=== PATIENT | female | born 1995 | race Caucasian/White ===

== ENCOUNTER 2017-10-14 18:14 | Emergency (ER) | payer OTHER ==
[2017-10-14 18:25] VITALS: BP 136/65
--- NOTE | 2017-10-14 18:44 | UC ---
Ear Complaint HPI - HPI Summary HPI Summary: Pt presents with right ear pain for 1 week. She tells me that her pain began in her right ear 1 week ago and feels like a dull throbbing. She does have a history of cerumen impaction, especially in the right ear. She has been using her cerumen-softening ear drops with no relief. Denies fever, chills, cough, SOB , chest pain, abdominal pain, n/v/d/c, headache, or dizziness. - History of Current Complaint Chief Complaint: UCEar Stated Complaint: EAR PAIN Time Seen by Provider: 10/14/17 18:43 Hx Obtained From: Patient Hx Last Menstrual Period: NOW Severity Initially: Mild Severity Currently: Mild Pain Intensity: 3 Pain Scale Used: 0-10 Numeric - Allergies/Home Medications Allergies/Adverse Reactions: Allergies Allergy/AdvReac Type Severity Reaction Status Date / Time Amoxicillin Allergy Rash Verified 10/14/17 18:25 Home Medications: Home Medications Acetaminophen [Mapap] 1,000 mg PO ONCE PRN 10/14/17 [History Confirmed 10/14/17] Lisinopril TAB* [Prinivil TAB*] 20 mg PO DAILY 10/14/17 [History Confirmed 10/14] Omeprazole CAP* [Prilosec CAP* 20 MG] 40 mg PO DAILY 10/14/17 [History Confirmed 10/14/17] PMH/Surg Hx/FS Hx/Imm Hx Previously Healthy: Yes GI/ History: Gastroesophageal Reflux - Surgical History Surgical History: Yes Surgery Procedure, Year, and Place: Appendectomy 2014, TONSILLECTOMY - Family History Known Family History: Positive: Cardiac Disease - Social History Occupation: Employed Full-time Lives: With Family Alcohol Use: Occasionally Substance Use Type: None Smoking Status (MU): Never Smoked Tobacco Review of Systems Constitutional: Negative Skin: Negative Eyes: Negative ENT: Ear Ache Respiratory: Negative Cardiovascular: Negative Gastrointestinal: Negative All Other Systems Reviewed And Are Negative: Yes Physical Exam Triage Information Reviewed: Yes Appearance: Well-Appearing, No Pain Distress, Well-Nourished Vital Signs: Initial Vital Signs Temp 97.7 F 10/14/17 18:23 Pulse 73 10/14/17 18:23 Resp 16 10/14/17 18:23 BP 136/65 10/14/17 18:23 Pulse Ox 100 10/14/17 18:23 Vital Signs Reviewed: Yes Eyes: Positive: Conjunctiva Clear. Negative: Conjunctiva Inflamed, Discharge ENT: Positive: Hearing grossly normal, Pharynx normal, Pharyngeal erythema, TMs normal, Uvula midline, Other - Right TM occluded by cerumen, but canal is with mild edema and thin clear/yellow discharge. After ear irrigation: TM is not bulging, dull, or red.. Negative: Nasal congestion, Nasal drainage, TM bulging , TM dull, TM red, Tonsillar swelling, Tonsillar exudate, Hoarse voice, Sinus tenderness Neck: Positive: Supple, Nontender, No Lymphadenopathy Respiratory: Positive: Chest non-tender, Lungs clear, Normal breath sounds, No respiratory distress, No accessory muscle use Cardiovascular: Positive: RRR, No Murmur, Pulses Normal Neurological: Positive: Alert Psychological: Positive: Age Appropriate Behavior Skin: Negative: rashes Ear Complaint Course/Dx - Course Course Of Treatment: Right ear irrigation - pt tolerated well and cerumen was successfully removed. She still had some mild pain, but felt improved. Rx for ofloxacin ear drops for otitis externa - Differential Dx/Diagnosis Differential Diagnosis/HQI/PQRI: Cerumen Impaction, Otitis Externa, Otitis Media , Perforated TM Provider Diagnoses: Otitis externa right ear. Cerumen impaction right ear Discharge - Discharge Plan Condition: Stable Disposition: HOME Prescriptions: Ofloxacin 0.3% OTIC.ISMAEL* [Floxin 0.3% OTIC.ISMAEL*] 10 drop RIGHT EAR DAILY #1 btl Patient Education Materials: Otitis Externa (ED) Referrals: Shelia Villanueva NP [Primary Care Provider] - Additional Instructions: If you develop a fever, shortness of breath, chest pain, new or worsening symptoms - please call your PCP or go to the ED. Your blood pressure was mildly elevated at todays visit. Please see your primary provider within 4 weeks for recheck and re-evaluation.
== END 2017-10-14 19:30 | disposition home or self-care (01) ==
LOC: UCEAST 18:14
DX: H60.91 Unspecified otitis externa, right ear (principal); H61.21 Impacted cerumen, right ear; K21.9 Gastro-esophageal reflux disease without esophagitis; Z90.89 Acquired absence of other organs; Z88.1 Allergy status to other antibiotic agents
CPT/HCPCS: 99213; G0463

== ENCOUNTER 2018-09-06 07:18 | Observation (INO) | payer BC ==
[~2018-09-06 07:18] MED LIST: Buffered Lidocaine 0.9% SYRIN* 5 ML/SYR SYRINGE INTRADERM ONE; Dexamethasone IV* 4 MG/ML 1 ML (4 MG) IV SLOW PU ONE; Famotidine IV* 10 MG/ML 2 ML (20 mg) IV ONE
[2018-09-06] MEDS ORDERED: fentaNYL* 50 MCG/ML 5 ML VIAL (250 MCG VIAL) ONE (08:52)
[2018-09-06] MEDS ORDERED: Midazolam* 1 MG/ML 5 ML VIAL (5 MG) ONE (08:52)
[2018-09-06] MEDS ORDERED: Dexamethasone IV* 4 MG/ML 1 ML (4 MG) ONE (08:55)
[2018-09-06] MEDS ORDERED: Famotidine IV* 10 MG/ML 2 ML (20 mg) ONE (08:55)
[2018-09-06] MEDS ORDERED: Buffered Lidocaine 0.9% SYRIN* 5 ML/SYR SYRINGE ONE (08:55)
[2018-09-06] MEDS ORDERED: Lidocaine 2% PF * 5 ML VIAL ONE ×2 (08:56→12:30)
[2018-09-06] MEDS ORDERED: Propofol* 10 MG/ML 20 ML BTL ONE ×2 (08:57→09:51)
[2018-09-06] MEDS ORDERED: Rocuronium* 10 MG/ML VIAL ONE (09:50)
[2018-09-06] MEDS ORDERED: Succinylcholine* 20 MG/ML 10 ML VIAL ONE ×2 (09:51→11:09)
[2018-09-06] MEDS ORDERED: DiMENhydriNATE IV* 50 MG/ML VIAL IV PUSH PRN (10:13)
[2018-09-06] MEDS ORDERED: Naloxone* 0.4 MG/ML 1 ML VIAL IV PRN (10:13)
[2018-09-06] MEDS ORDERED: fentaNYL* 50 MCG/ML 2 ML VIAL (100 MCG VIAL) IV PRN (10:13)
[2018-09-06] MEDS ORDERED: Lidocain 1% EPI 1:100,000 * 30 ML MDV ONE (10:28)
[2018-09-06] MEDS ORDERED: Ondansetron INJ* 2 MG/ML VIAL ONE (13:34)
[2018-09-06] MEDS ORDERED: fentaNYL* 50 MCG/ML 2 ML VIAL (100 MCG VIAL) ONE (13:44)
[2018-09-06] MEDS ORDERED: Ibuprofen PED LIQ 100 MG/5 ML UDC ONE ×2 (15:48→15:49)
[2018-09-06] MEDS ORDERED: Ondansetron TAB* 4 MG PO PRN (16:48)
[2018-09-06] MEDS ORDERED: Ondansetron INJ* 2 MG/ML VIAL IV PRN (16:49)
[2018-09-06] MEDS ORDERED: Enoxaparin(*) 40 MG/0.4 ML SYR SUBCUT SCH (17:00)
[2018-09-06] MEDS ORDERED: Ibuprofen TAB* 800 MG PO PRN (20:39)
[2018-09-06] MEDS ORDERED: HYDROcodone/ACETAMIN 5-325 MG* 1 TAB PO PRN ×2 (20:40→20:42)
[2018-09-06] MEDS: Calcium/Vitamin D TAB 250/125* TAB PO SCH (20:54)
--- NOTE | 2018-09-06 23:20 | HP ---
CC: Dr. Garcia * HISTORY AND PHYSICAL: DATE OF ADMISSION: 09/06/18 CHIEF COMPLAINT: Elective thyroidectomy for papillary thyroid cancer. HISTORY OF PRESENT ILLNESS: This is a 22-year-old female with no past medical history who underwent an elective thyroidectomy for papillary thyroid cancer today with Dr. Garcia. The procedure was uncomplicated. She tolerated it well and she has since been transferred to short stay. I saw her in 350 and she is feeling well. She has a little bit of pain at the incision site and feels a little drowsy, but is hungry and looks forward to having some dinner. She has no other complaints at this time. The papillary thyroid cancer was discovered on surveillance because her sister was recently diagnosed with papillary thyroid cancer. PAST MEDICAL HISTORY: None until recent diagnosis of papillary thyroid cancer. She follows with Dr. Reilly and Dr. Garcia. PAST SURGICAL HISTORY: Appendectomy and T and A. HOME MEDICATIONS: Calcium carbonate t.i.d. REVIEW OF SYSTEMS: Negative except per the HPI. PHYSICAL EXAMINATION GENERAL: Alert, well-appearing young female in no distress. VITAL SIGNS: Temperature 97.5, heart rate 82, respiratory rate 16, pulse ox 100 % on room air, blood pressure 142/84. HEENT: Pupils 4 mm bilaterally. Oral mucosa is moist. NECK: No submandibular adenopathy. Clean incision is noted with a ABEL drain draining bright red blood. LUNGS: Clear bilaterally. CHEST: Regular rate and rhythm. No murmurs. ABDOMEN: Obese, soft, nontender, nondistended. EXTREMITIES: No edema. Strength is 5/5 throughout. No tremors. SKIN: No rashes, lesions, or ulcers. LABORATORY DATA: Calcium at 1450 was 9.5. ASSESSMENT AND PLAN: This is a 22-year-old lady with no past medical history who was recently diagnosed with papillary thyroid cancer who is admitted from the PACU after a thyroidectomy. Postop day #0 thyroidectomy. She tolerated the procedure well and her diet can be advanced to soft and from there to regular unrestricted as she desires. She appears euvolemic. I do not think she needs any IV fluids at this time. She can have pain control as needed. At this time, her pain is controlled on ibuprofen only. We will need to keep a close eye on her serum calcium level. I have ordered calcium to be drawn every 6 hours through the night. Her head of the bed should be raised at 30 degrees as per ENT orders and she should be on SCDs and no pharmacologic DVT prophylaxis. Pathology is pending. [id number]/[facility] #: [id number] MTDRyan
[2018-09-07] MEDS: Calcium/Vitamin D TAB 250/125* TAB PO SCH ×2 (08:48→13:51)
--- NOTE | 2018-09-07 10:10 | OP ---
DATE OF OPERATION: 09/06/18 - ROOM #350 DATE OF : 89 SURGEON: Jose Garcia MD COOK ROAST: Jose F Oconnell MD PRE-OP DIAGNOSIS: Papillary thyroid carcinoma. POST-OP DIAGNOSIS: Papillary thyroid carcinoma. OPERATIVE PROCEDURE: Total thyroidectomy. ANESTHESIA: General. ESTIMATED BLOOD LOSS: Approximately 50 cc. SPECIMENS: 1. Central compartment lymph node sent for frozen. 2. Total thyroid specimen. 3. Rule out right parathyroid gland again sent for frozen. INDICATION: This is a 22-year-old woman who was recently underwent fine needle aspiration of a changed nodule in the left lobe of the thyroid. 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 Fine needle aspiration was consistent with papillary carcinoma. Given the multiplicity of nodules and the fact that the patient has a sibling with papillary carcinoma and the likely need that she would need a lifelong replacement for thyroid dysfunction due to Maile's the decision was made to proceed with total thyroidectomy. DESCRIPTION OF PROCEDURE: On 09/06/18 the patient was brought to the operating room. General anesthesia was induced and the NIMs endotracheal tube was placed , appropriate position was confirmed visually using glide scope. The intended incision site was then marked, 6 cc of 1% lidocaine with 1:100,000 epinephrine were infiltrated into the subcutaneous soft tissue. The neck was then prepped with Betadine and the patient draped. The timeout was performed. A #15 blade was used to incise skin. The Bovie was used to dissect subcutaneous fat down to and through the level of the platysma muscle. The subplatysmal flaps were raised superiorly and inferiorly. The strap musculature was then exposed, it was divided vertically along the median raphe, dissection was begun at the left lobe. Strap muscles were reflected off the left the thyroid gland, early on it became clear that there was some central compartment adenopathy and so one of these lymph nodes was sent for frozen section. It was felt to be benign. The strap muscles were reflected off the left lobe of the thyroid, the superior vascular pedicle was identified, ligated with hemoclips and divided with the LigaSure device. Inferiorly the tracheoesophageal groove region was then explored. There were multiple small lymph nodes in this area, which were respected in continuity with the thyroid. The inferior vascular pedicle was identified as was the recurrent laryngeal nerve. This was used as a landmark to guide dissection superiorly. The inferior vascular blood supply was ligated as close as possible to the gland, middle thyroid vein was also ligated, hemoclipped, and divided. At least one candidate parathyroid gland was visualized and kept in situ with its blood supply, as the gland was reflected off toward the midline. The attachment at Hernandez's ligament were divided with a bipolar cautery with a very small cusp of thyroid tissue left right at the insertion point where the nerve was entering under the cricothyroid muscle. With the dissection completed on the left attention was turned to the right again superior vascular pedicle was identified, ligated with hemoclips and divided with LigaSure device. Attention was then turned inferiorly, tracheoesophageal groove was explored until the recurrent laryngeal nerve was positively identified. This was used as a guide for more superior dissection. The inferior vascular supply was ligated as close as possible to the capsule gland in an attempt to preserve any possible parathyroid tissue. The gland was reflected medially, no thyroid vein was ligated and divided and the specimen was ultimately freed off of the trachea with attachments of Hernandez's ligament divided with bipolar cautery. At the conclusion of the case at least one parathyroid candidate was seen in both sides. There was a nodule adherent to the posterior aspect of the right lobe thyroid, which was noted once the specimen was removed. This was removed, from the main specimen and sent as its own frozen as rule out right parathyroid it came back as normal lymph node. Both nerves were visually inspected found to be intact, both were stimulated and in good working order on the NIMs monitor. The wound was then copiously irrigated, Surgicel was placed on both sides of the wound adjacent to Hernandez's ligament and #7 ABEL was placed. The incision was then closed in layers, strap muscles were reapproximated, platysma was then reapproximated with 4-0 Vicryl. Skin was closed with 4-0 nylon. The ABEL was secured with Prolene. The patient was then returned to care of the anesthesiologist, extubated, and delivered to the PACU in stable condition. [id number]/[facility] #: [id number] DENAE
[2018-09-07 11:31] VITALS: BP 162/47
--- NOTE | 2018-09-08 12:00 | DS ---
CC: Dr. Garcia.* DISCHARGE SUMMARY: DATE OF ADMISSION: 09/06/18 DATE OF DISCHARGE: 09/07/18 PRINCIPAL DISCHARGE DIAGNOSES: 1. Status post total thyroidectomy. 2. Papillary thyroid cancer. HOSPITAL COURSE BY PROBLEM: Total thyroidectomy for papillary thyroid cancer. This is a 22-year-old female who was recently diagnosed with papillary thyroid cancer by ENT. She was admitted to the hospital for an elective thyroidectomy with Dr. Garcia on 09/06/18. The procedure was uneventful and a ABEL drain was placed and she was transferred to short stay postoperatively. Her calcium was checked q.6 and she was continued on her p.o. calcium supplementation. Her discharge calcium level was 8.3. She is instructed to continue her calcium carbonate 2 tabs t.i.d. and she has followup with Dr. Garcia next week. She also has followup with Dr. Reilly next week. On the day of discharge her ABEL drain was pulled and she was managing the pain with ibuprofen only. Dr. Garcia had also sent Lortab to her pharmacy and she is to use that for worse pain. She has no other complaints at the time of discharge. She is instructed to return to the emergency department should she develop cramping or hypertonicity. [id number]/[facility] #: [id number] DENAE
== END 2018-09-07 14:30 | disposition home or self-care (01) ==
LOC: OR 07:18 → SSU 16:17
PROVIDERS: ADMIT Otolaryngology; ATTEND Otolaryngology
DX: C73 Malignant neoplasm of thyroid gland (principal); C96.9 Malignant neoplasm of lymphoid, hematopoietic and related tissue, unspecified; Z88.0 Allergy status to penicillin
CPT/HCPCS: 36415; 81025; 82310; 82330; 88305; 88307; 88331; 96372; 96374; 96375; 96376; A9270-GY; G0378; J0330; J1100; J2250; J2405; J2704; J3010

== ENCOUNTER 2020-06-05 18:04 | Inpatient (IN) ==
[2020-06-05] MEDS ORDERED: Dinoprostone 10 MG VAG.SUPP VAGINAL ONE (19:04)
[2020-06-05] MEDS ORDERED: Lactated Ringers 1000 ml BAG 1,000 ML IV ONE (19:04)
[2020-06-05] MEDS ORDERED: Lactated Ringers 1000 ml BAG 1,000 ML IV SCH (20:00)
[2020-06-05 20:11] LABS: ABS Basophils 0.1 10^3/ul (0-0.2); ABS Eosinophils 0.1 10^3/ul (0-0.6); ABS Lymphocytes 2.5 10^3/ul (1.0-4.8); ABS Monocytes 0.6 10^3/ul (0-0.8); ABS Neutrophils 6.5 10^3/ul (1.5-7.7); Eosinophil % 1.3 %; Hematocrit 35 % (35-47); Hemoglobin 12.3 g/dL (12.0-16.0); Lymphocyte % 25.8 %; Mean Corpuscular HGB Conc 35 g/dL (31-36); Mean Corpuscular Hemoglobin 27 pg (27-31); Mean Corpuscular Volume 76 fL (80-97); Mean Platelet Volume 8.9 fL (7.4-10.4); Platelet Count 332 10^3/uL (150-450); Red Blood Count 4.62 10^6 /uL (3.70-4.87); Red Cell Distribution Width 15 % (10-15); White Blood Count 9.7 10^3/uL (3.5-10.8)
[2020-06-05 20:19] LABS: Albumin 3.4 g/dL (3.2-5.2); Potassium 4.1 mmol/L (3.5-5.0); Total Bilirubin 0.3 mg/dL (0.2-1.0)
[2020-06-05 20:24] LABS: Urine Benzodiazepine Screen None Detected (None Detect); Urine Cannabinoids Screen None Detected (None Detect); Urine Opiates Screen None Detected (None Detect)
[2020-06-05 20:25] LABS: BUN/Creatinine Ratio 16.7 (8-20); EGFR African American 166.4 (>60); EGFR Non-African American 137.6 (>60); Globulin 3.5 g/dL (2-4); Total Protein 6.9 g/dL (6.4-8.9); Uric Acid 3.8 mg/dL (2.3-6.6)
[2020-06-06] MEDS ORDERED: ceFAZolin 2 GM PREMIX 2 GM/50 ML BAG IVPB ONE (10:13)
[2020-06-06] MEDS ORDERED: Labetalol IV 5 MG/ML 20 ml VIAL ONE (10:31)
[2020-06-06] MEDS: Labetalol IV 5 MG/ML 20 ml VIAL IV PUSH ONE ×2 (10:49→17:38)
[2020-06-06] MEDS ORDERED: Oxytocin in LR 20 UNITS/1,000 ML BAG IVPB SCH (11:00)
[2020-06-06 11:39] LABS: Urine Appearance Clear; Urine Bilirubin Negative (Negative); Urine Blood Negative (Negative); Urine Color Yellow; Urine Glucose Negative (Negative); Urine Ketones Negative (Negative); Urine Nitrite Negative (Negative); Urine Protein Negative (Negative); Urine Specific Gravity 1.019 (1.010-1.030); Urine Urobilinogen Negative (Negative)
[2020-06-06] MEDS ORDERED: Dinoprostone 10 MG VAG.SUPP VAGINAL ONE (16:25)
[2020-06-06] MEDS ORDERED: Labetalol IV 5 MG/ML 20 ml VIAL IV PUSH ONE (17:51)
[2020-06-07] MEDS ORDERED: Oxytocin in LR 20 UNITS/1,000 ML BAG IVPB SCH ×2 (09:00→22:00)
[2020-06-07] MEDS ORDERED: fentaNYL 100 mcg/2 ml 50 MCG/ML VIAL IV SLOW PU ONE (16:40)
[2020-06-07] MEDS ORDERED: NS 0.9% 100 ml BAG 100 ML ONE (16:49)
[2020-06-07] MEDS ORDERED: ceFAZolin VIAL 2 GM in NS 0.9% 100 ml BAG 100 ML IVPB SCH (17:00)
[2020-06-07] MEDS ORDERED: ceFAZolin 2 GM PREMIX 2 GM/50 ML BAG IVPB SCH (17:00)
[2020-06-07] MEDS ORDERED: OBEPIDURAL 250 ML EPIDURAL ONE (17:32)
[2020-06-07] MEDS ORDERED: Phenylephrine 40 mcg/mL 10mL (400mcg) SYRINGE IV PUSH PRN (20:45)
[2020-06-07] MEDS ORDERED: Sodium Citrate/Citric Acid LIQ 15 ML UDC PO PRN (20:45)
[2020-06-07] MEDS ORDERED: OBEPIDURAL 250 ML EPIDURAL SCH (21:00)
[2020-06-07] MEDS ORDERED: Dibucaine 1% OINT 28.35 GM TUBE ONE (21:07)
[2020-06-07] MEDS ORDERED: Witch Hazel PAD JAR ONE (21:07)
[2020-06-07] MEDS ORDERED: Witch Hazel PAD JAR TOPICAL PRN (21:32)
[2020-06-07] MEDS ORDERED: Glycerin ADULT 2.4 gm SUPP PR PRN (21:32)
[2020-06-07] MEDS ORDERED: Lactated Ringers 1000 ml BAG 1,000 ML IV SCH (22:00)
[2020-06-08 08:03] LABS: ABS Basophils 0.1 10^3/ul (0-0.2); ABS Lymphocytes 2.5 10^3/ul (1.0-4.8); ABS Monocytes 0.7 10^3/ul (0-0.8); ABS Neutrophils 8.6 10^3/ul (1.5-7.7); Eosinophil % 0.4 %; Hematocrit 34 % (35-47); Hemoglobin 11.5 g/dL (12.0-16.0); Lymphocyte % 21.3 %; Mean Corpuscular HGB Conc 34 g/dL (31-36); Mean Corpuscular Hemoglobin 26 pg (27-31); Mean Corpuscular Volume 77 fL (80-97); Mean Platelet Volume 8.3 fL (7.4-10.4); Platelet Count 284 10^3/uL (150-450); Red Blood Count 4.45 10^6 /uL (3.70-4.87); Red Cell Distribution Width 16 % (10-15)
[2020-06-08] MEDS: Dibucaine 1% OINT 28.35 GM TUBE PR PRN (11:38)
[2020-06-09] MEDS ORDERED: Tetan/Diph/Pertus SYR(Tdap) 0.5 ML SYR(BOOSTRIX) use SYR contains LATEX IM ONE (13:00)
[2020-06-09] MEDS: Dibucaine 1% OINT 28.35 GM TUBE PR PRN (14:24)
[2020-06-09 17:51] VITALS: BP 145/85
== END 2020-06-09 18:59 | disposition home or self-care (01) ==
LOC: MCHOBOUT 18:04 → MCHOB 19:32
PROVIDERS: ADMIT Obstetrics & Gynecology; ATTEND Obstetrics & Gynecology

== ENCOUNTER 2023-06-23 08:06 | Inpatient (IN) ==
[2023-06-23] MEDS ORDERED: Buffered Lidocaine 1% SYRIN 1 ml INTRADERM ONE (09:33)
[2023-06-23] MEDS ORDERED: Lidocaine 1% VIAL 10 MG/ML 30 ML VIAL INJ PRN (09:33)
[2023-06-23] MEDS ORDERED: Nalbuphine 10 MG/ML 1 ML VIAL IV PRN (09:33)
[2023-06-23] MEDS ORDERED: Lactated Ringers 1000 ml BAG 1,000 ML IV ONE ×2 (09:33→20:44)
[2023-06-23] MEDS ORDERED: Promethazine INJ(RESTRICTED) 25 MG/ML 1 ml VIAL IV PRN (09:33)
[2023-06-23] MEDS ORDERED: Oxytocin in LR 20,000 MILLI.UNIT/1,000 ML BAG IV SCH (09:45)
[2023-06-23] MEDS ORDERED: Lactated Ringers 1000 ml BAG 1,000 ML IV SCH ×2 (10:00→21:00)
[2023-06-23 10:21] LABS: Urine Benzodiazepine Screen None Detected (None Detect); Urine Opiates Screen None Detected (None Detect)
[2023-06-23 11:37] LABS: ABS Basophils 0.1 10^3/uL (0.0-0.1); ABS Eosinophils 0.1 10^3/uL (0.0-0.5); ABS Lymphocytes 1.9 10^3/uL (1.0-4.8); ABS Monocytes 0.6 10^3/uL (0.0-0.9); ABS Neutrophils 6.1 10^3/uL (1.5-7.6); ABS Nucleated RBC 0.01 10^3/ul; Hematocrit 33.5 % (35-45); Hemoglobin 10.7 g/dL (11.5-14.3); Lymphocyte % 21.8 %; Mean Corpuscular Hemoglobin 21.1 pg (27-33); Nucleated Red Blood Cells % 0.2 /100 WBC (0.0-0.4); Platelet Count 367 10^3/uL (150-450); Red Blood Count 5.07 10^6/uL (3.63-4.92); Red Cell Distribution Width 18.8 % (12-17); White Blood Count 8.8 10^3/uL (3.8-11.8)
[2023-06-23 11:56] LABS: Albumin 3.3 g/dL (3.2-5.2); Calcium 8.1 mg/dL (8.6-10.3); Total Bilirubin 0.3 mg/dL (0.2-1.0)
[2023-06-23 12:02] LABS: Albumin/Globulin Ratio 0.8 (1-3); Creatinine, Serum 0.58 mg/dL (0.51-0.95); Globulin 4.1 g/dL (2-4); Total Protein 7.4 g/dL (6.4-8.9); Uric Acid 3.9 mg/dL (2.3-6.6); eGFR CKD-EPI 126.3 (>60)
[2023-06-23] MEDS ORDERED: Lidocaine 1.5% EPI 1:200,000 30 ML SDV ONE (19:23)
[2023-06-23] MEDS ORDERED: OBEPIDURAL (200 ML) 200 ML EPIDURAL ONE (19:23)
[2023-06-23] MEDS ORDERED: Sodium Citrate/Citric Acid LIQ 15 ML UDC PO PRN (20:44)
[2023-06-23] MEDS ORDERED: Phenylephrine 40 mcg/mL 10mL (400mcg) SYRINGE IV PUSH PRN ×2 (20:44)
[2023-06-23] MEDS ORDERED: OBEPIDURAL (200 ML) 200 ML EPIDURAL SCH (21:00)
[2023-06-23 22:30] LABS: Urine Benzodiazepine Screen None Detected (None Detect); Urine Cannabinoids Screen None Detected (None Detect); Urine Opiates Screen None Detected (None Detect)
[2023-06-24] MEDS ORDERED: Glycerin ADULT 2.4 gm SUPP PR PRN (00:31)
[2023-06-24] MEDS ORDERED: Witch Hazel PAD JAR TOPICAL PRN (00:31)
[2023-06-24] MEDS ORDERED: Oxytocin in LR 20,000 MILLI.UNIT/1,000 ML BAG IV SCH (00:35)
[2023-06-24] MEDS ORDERED: Lactated Ringers 1000 ml BAG 1,000 ML IV SCH (01:00)
[2023-06-24] MEDS: Dibucaine 1% OINT 28.35 GM TUBE PR PRN (02:05)
[2023-06-25 08:14] VITALS: BP 148/102
[2023-06-25] MEDS: Dibucaine 1% OINT 28.35 GM TUBE PR PRN (09:18)
[2023-06-25 10:12] LABS: Red Blood Count 4.64 10^6/uL (3.63-4.92); White Blood Count 11.2 10^3/uL (3.8-11.8)
[2023-06-25 10:13] LABS: ABS Basophils 0.1 10^3/uL (0.0-0.1); ABS Eosinophils 0.1 10^3/uL (0.0-0.5); ABS Lymphocytes 2.1 10^3/uL (1.0-4.8); ABS Monocytes 0.5 10^3/uL (0.0-0.9); ABS Neutrophils 8.4 10^3/uL (1.5-7.6); ABS Nucleated RBC 0.01 10^3/ul; Eosinophil % 0.9 %; Hematocrit 31.2 % (35-45); Hemoglobin 9.8 g/dL (11.5-14.3); Lymphocyte % 18.4 %; Mean Corpuscular Hemoglobin 21.1 pg (27-33); Mean Corpuscular Hgb Conc 31.4 g/dL (31-36); Mean Corpuscular Volume 67.2 fL (80-97); Mean Platelet Volume 8.8 fL (7.5-11.2); Nucleated Red Blood Cells % 0.1 /100 WBC (0.0-0.4); Platelet Count 323 10^3/uL (150-450); Red Cell Distribution Width 18.9 % (12-17)
== END 2023-06-25 12:00 | disposition home or self-care (01) | DRG 807 ==
LOC: MCHOBOUT 08:06 → MCHOB 09:23
PROVIDERS: ADMIT Obstetrics & Gynecology; ATTEND Obstetrics & Gynecology